=== PATIENT | male | born 1940 | race Caucasian/White ===

== ENCOUNTER → 2016-10-28 | Outpatient (CLI) | payer MEDICARE, OTHER ==
[~2016-10-28] MED LIST: ASPIRIN E.C. 8181 MG PO; B-121000 MCG PO; BETA GEST PO; CALCIUM CITRAT200 M2 PO; CIPRO 500MG TA500 MG PO; COENZYME Q-10100 M1 PO; FLONASE NASAL S16 GM NS; KLONOPIN 0.5MG0.5 MG PO; LUTEIN20 MG PO; MAGNESIUM250 M1 PO; MAREPA1200 MG PO; MASON NATURAL1000 M1 PO; METHYL B12 PO; MILK THISTLE150 MG PO; MULTIMINERALS PO; MULTIPLE VITAMI1 CAP PO; OSTEO-BI-FLEX 21 TAB PO; PROBIOTIC ACID1 EAC3 PO; PROBIOTIC FORMU1 CAP PO; SINGULAIR 110 MG/TAB PO; TYLENOL 500MG500 MG PO; VITAMIN B-6100 MG PO; VITAMIN C500 MG PO; VITAMIN D31000 IU PO; WELLBUTRIN SR150 M1 PO; ZINC50 M2 PO; [UNRECOGNIZED DRUG - OTHER]; [UNRECOGNIZED DRUG - OTHER] PO; [UNRECOGNIZED DRUG - OTHER] PO; [UNRECOGNIZED DRUG - OTHER] PO; [UNRECOGNIZED DRUG - OTHER] PO; [UNRECOGNIZED DRUG - OTHER] PO; [UNRECOGNIZED DRUG - OTHER] PO; [UNRECOGNIZED DRUG - OTHER] PO; [UNRECOGNIZED DRUG - OTHER] PO
== END ==
LOC: COL.RAD 07:42
DX: M47.26 Other spondylosis with radiculopathy, lumbar region (principal); M48.06 Spinal stenosis, lumbar region; M51.16 Intervertebral disc disorders with radiculopathy, lumbar region

== ENCOUNTER → 2016-12-30 | Outpatient (CLI) | payer MEDICARE, OTHER ==
[~2016-12-30] MED LIST changes: -TYLENOL 500MG500 MG PO
== END ==
LOC: COL.RAD 07:40
DX: N20.0 Calculus of kidney (principal); R31.0 Gross hematuria; Z98.890 Other specified postprocedural states
CPT/HCPCS: Q9967

== ENCOUNTER 2017-01-20 05:33 | Day surgery (SDC) | payer MEDICARE, OTHER ==
[~2017-01-20] VITALS: Ht 177.8 cm; Wt 71.4 kg
[2017-01-20] VITALS (11 sets, daily range): BP systolic 100–131; BP diastolic 55–84; PULSE 56–90; TEMP 97.3–98.3
[~2017-01-20 05:33] MED LIST changes: -B-121000 MCG PO; -CIPRO 500MG TA500 MG PO; -COENZYME Q-10100 M1 PO; -MASON NATURAL1000 M1 PO; -MILK THISTLE150 MG PO; -PROBIOTIC ACID1 EAC3 PO; -VITAMIN B-6100 MG PO; -[UNRECOGNIZED DRUG - OTHER] PO; -[UNRECOGNIZED DRUG - OTHER] PO
[2017-01-20] MEDS ORDERED: OSTEO-BI-FLEX 21 TAB PO (06:43)
[2017-01-20] MEDS ORDERED: PROBIOTIC ACID1 EAC3 PO (06:45)
[2017-01-20] MEDS ORDERED: MASON NATURAL1000 M1 PO (06:48)
[2017-01-20] MEDS ORDERED: [UNRECOGNIZED DRUG - OTHER] PO (06:50)
[2017-01-20] MEDS ORDERED: VITAMIN B-6100 MG PO (06:51)
[2017-01-20] MEDS ORDERED: B-121000 MCG PO (06:51)
[2017-01-20] MEDS ORDERED: COENZYME Q-10100 M1 PO (06:52)
[2017-01-20] MEDS ORDERED: [UNRECOGNIZED DRUG - OTHER] PO (06:56)
[2017-01-20] MEDS ORDERED: MILK THISTLE150 MG PO (07:00)
[2017-01-21 01:50] VITALS: BP 94/52; PULSE 63; TEMP 99.5
[2017-01-21 05:42] VITALS: BP 128/75; PULSE 56; TEMP 98.8
[2017-01-21 09:38] VITALS: BP 128/88; PULSE 67; TEMP 97.6
[2017-01-21 13:54] VITALS: BP 114/70; PULSE 91; TEMP 98.4
== END 2017-01-21 15:30 | disposition home or self-care (01) ==
LOC: SDCO 05:33 → SURG 09:35 → SDCO 01-21 15:30
DX: C67.6 Malignant neoplasm of ureteric orifice (principal); N32.0 Bladder-neck obstruction; C61 Malignant neoplasm of prostate; R31.9 Hematuria, unspecified; M46.90 Unspecified inflammatory spondylopathy, site unspecified; G47.33 Obstructive sleep apnea (adult) (pediatric); I49.9 Cardiac arrhythmia, unspecified; Z85.46 Personal history of malignant neoplasm of prostate; K21.9 Gastro-esophageal reflux disease without esophagitis; G25.81 Restless legs syndrome; K27.9 Peptic ulcer, site unspecified, unspecified as acute or chronic, without hemorrhage or perforation; M77.9 Enthesopathy, unspecified
CPT/HCPCS: OP; A9284; C1769; C2617; J0360; J0690; J1885; J2270; J2405; J2704; J3010; J7120; Q9967

== ENCOUNTER 2017-01-24 20:42 | Emergency (ER) | payer MEDICARE, OTHER, BC ==
[~2017-01-24] VITALS: Ht 177.8 cm; Wt 68.2 kg
[~2017-01-24 20:42] MED LIST changes: +B-121000 MCG PO; +COENZYME Q-10100 M1 PO; +MASON NATURAL1000 M1 PO; +MILK THISTLE150 MG PO; +PROBIOTIC ACID1 EAC3 PO; +VITAMIN B-6100 MG PO; +[UNRECOGNIZED DRUG - OTHER] PO; +[UNRECOGNIZED DRUG - OTHER] PO
[2017-01-24 20:52] VITALS: TEMP 97.9
[2017-01-24 21:52] LABS: BASO % 0.5 % (0.0-2.0); EOS # 0.2 (0.0-0.7); GRAN # 3.6 (1.4-6.5); GRAN % 62.5 % (42.2-75.2); HEMATOCRIT 44.3 % (42.0-52.0); HEMOGLOBIN 15.7 g/dl (13.5-18.0); LYMPH # 1.3 (1.2-3.4); LYMPH % 22.5 % (20.0-51.0); MEAN CELL VOLUME 93 fl (80.0-100.0); MEAN CORPUSCULAR HEMOGLOBIN 33 pg (27.0-31.0); MEAN CORPUSCULAR HGB CONC 35 g/dl (33.0-37.0); MONO # 0.6 (0.1-0.6); MONO % 11.2 % (1.7-9.3); PLATELET COUNT 151 K/mm3 (130-400); RED BLOOD COUNT 4.77 M/mm3 (4.20-5.60); REDCELL DISTRIBUTION WIDTH-CV 11.6 % (11.5-14.5); WHITE BLOOD COUNT 5.7 K/mm3 (4.8-10.8)
[2017-01-24 22:02] LABS: ADJUSTED CALCIUM 9.2 mg/dL (8.4-10.2); ALBUMIN 3.9 gm/dL (3.5-5.0); BILIRUBIN,TOTAL 0.6 mg/dL (0.0-1.0); CALCIUM 9.1 mg/dL (8.4-10.2); CREATININE, serum 0.94 mg/dL (0.66-1.25); TOTAL PROTEIN 6.8 gm/dL (6.4-8.2)
[2017-01-24 22:07] LABS: PH 8 (5-8); SQUAMOUS EPITHELIAL None Seen /hpf; URINE APPEARANCE Clear; URINE BACTERIA Rare /hpf; URINE BILIRUBIN Negative (NEGATIVE); URINE BLOOD 3+ (NEGATIVE); URINE COLOR Yellow; URINE GLUCOSE Negative (NEGATIVE); URINE KETONE Negative (NEGATIVE); URINE RBC >50 /hpf; URINE UROBILINOGEN Negative (NEGATIVE)
[2017-01-24 22:44] VITALS: BP 134/87; PULSE 68
[2017-01-24] MEDS ORDERED: CIPRO 500MG TA500 MG PO (22:53)
== END 2017-01-24 23:08 | disposition home or self-care (01) ==
LOC: COL.ER 20:42
PROVIDERS: Emergency Medicine
DX: R31.9 Hematuria, unspecified (principal); R33.9 Retention of urine, unspecified; Z85.46 Personal history of malignant neoplasm of prostate; Z90.49 Acquired absence of other specified parts of digestive tract; Z90.79 Acquired absence of other genital organ(s)

== ENCOUNTER → 2017-05-22 | Outpatient (CLI) | payer MEDICARE, OTHER ==
[~2017-05-22] MED LIST changes: +CIPRO 500MG TA500 MG PO; +TYLENOL 500MG500 MG PO
== END ==
LOC: COL.RAD 07:22
DX: N32.89 Other specified disorders of bladder (principal); N20.0 Calculus of kidney

== ENCOUNTER → 2018-04-27 | Outpatient (CLI) | payer MEDICARE, OTHER ==
[~2018-04-27] MED LIST changes: -FLONASE NASAL S16 GM NS; +FLONASEALLERGY NS; +LUTEIN20 M1 PO; -LUTEIN20 MG PO; -MAGNESIUM250 M1 PO; +MAGNESIUM500 MG PO; +MASON NATURAL2000 IU PO; -MILK THISTLE150 MG PO; +MILK THISTLE500 M2 PO; -VITAMIN B-6100 MG PO; +VITAMIN B650 MG PO; -VITAMIN D31000 IU PO; +VITAMINE200 PO; +WELLBUTRIN SR100 M1 PO; -WELLBUTRIN SR150 M1 PO; -[UNRECOGNIZED DRUG - OTHER] PO
== END ==
LOC: COL.RAD 09:17
DX: C61 Malignant neoplasm of prostate (principal); C67.4 Malignant neoplasm of posterior wall of bladder

== ENCOUNTER 2019-11-02 06:49 | Emergency (ER) | payer MEDICARE, OTHER ==
[~2019-11-02] VITALS: Ht 175.3 cm; Wt 72.7 kg
[2019-11-02 06:50] VITALS: TEMP 97.6
[2019-11-02 07:54] LABS: BASO % 0.4 % (0.0-2.0); EOS # 0.1 (0.0-0.7); EOS % 1.2 % (0-4.0); GRAN # 4.1 (1.4-6.5); GRAN % 81.9 % (42.2-75.2); HEMOGLOBIN 16.3 g/dl (13.5-18.0); LYMPH # 0.6 (1.2-3.4); LYMPH % 10.9 % (20.0-51.0); MEAN CELL VOLUME 94 fl (80.0-100.0); MEAN CORPUSCULAR HEMOGLOBIN 33 pg (27.0-31.0); MEAN CORPUSCULAR HGB CONC 35 g/dl (33.0-37.0); MEAN PLATELET VOLUME 9.6 fl (7.4-10.4); MONO # 0.3 (0.1-0.6); MONO % 5.4 % (1.7-9.3); PLATELET COUNT 148 K/mm3 (130-400); REDCELL DISTRIBUTION WIDTH-CV 11.9 % (11.5-14.5)
[2019-11-02 08:00] LABS: INR 1.1 (0.8-3.0); PROTHROMBIN TIME 11.8 SECONDS (9.7-12.8)
[2019-11-02] MEDS ORDERED: MASON NATURAL1000 M1 PO (08:10)
[2019-11-02 08:11] LABS: ALANINE AMINOTRANSFERASE 20 U/L (4-49); ALBUMIN 4.2 gm/dL (3.5-5.0); ALKALINE PHOSPHATASE 69 U/L (50-136); ANION GAP 4 mmol/L (7-16); AST,SGOT 28 U/L (15-37); BILIRUBIN,TOTAL 0.8 mg/dL (0.0-1.0); BLOOD UREA NITROGEN 23 mg/dL (9-20); CALCIUM 9.2 mg/dL (8.4-10.2); CARBON DIOXIDE 30 mmol/L (22-30); CHLORIDE 103 mmol/L (98-107); CREATININE, serum 0.97 (0.66-1.25); GLUCOSE 123 mg/dL (74-106); LIPASE 448 U/L (23-300); POTASSIUM 4.2 mmol/L (3.4-5.0); SODIUM 138 mmol/L (137-145); TOTAL PROTEIN 7.3 gm/dL (6.4-8.2)
[2019-11-02] MEDS ORDERED: TURMERIC500 MG PO (08:11)
[2019-11-02] MEDS ORDERED: NATURAL FLAX1000 MG PO (08:11)
[2019-11-02] MEDS ORDERED: ALL DAY ALLERGY (08:12)
[2019-11-02] MEDS ORDERED: DIGESTIVE ENZYME (08:13)
[2019-11-02] MEDS ORDERED: BETA GEST (08:14)
[2019-11-02] MEDS ORDERED: B COMPLEX & B121 TAB (08:15)
[2019-11-02 08:17] LABS: C-REACTIVE PROTEIN < 0.5 mg/dL (0.0-0.9)
[2019-11-02 08:25] LABS: COLLECTION METHOD CLEAN CATCH
[2019-11-02 08:27] LABS: TROPONIN-I < 0.012 ng/mL (0.000-0.035)
[2019-11-02 08:31] LABS: MUCOUS Present /lpf; PH 9 (5-8); SQUAMOUS EPITHELIAL 0-2 /hpf; URINE APPEARANCE Clear; URINE BACTERIA None Seen /hpf; URINE BILIRUBIN Negative (NEGATIVE); URINE BLOOD Negative (NEGATIVE); URINE COLOR Yellow; URINE GLUCOSE Negative (NEGATIVE); URINE KETONE Negative (NEGATIVE); URINE LEUKOCYTE ESTERASE Negative (NEGATIVE); URINE NITRATE Negative (NEGATIVE); URINE PROTEIN(semi-quant) Negative (NEGATIVE); URINE UROBILINOGEN Negative (NEGATIVE)
[2019-11-02] MEDS ORDERED: PHENERGAN 25 TA25 MG PO (10:53)
[2019-11-02] MEDS ORDERED: AMOXICILLIN 8751 TAB PO (11:11)
[2019-11-02 11:50] VITALS: BP 146/95; PULSE 72
== END 2019-11-02 11:55 | disposition home or self-care (01) ==
LOC: COL.ER 06:49
PROVIDERS: Emergency Medicine
DX: R53.81 Other malaise (principal); R31.9 Hematuria, unspecified; H70.90 Unspecified mastoiditis, unspecified ear; R74.8 Abnormal levels of other serum enzymes; Z90.49 Acquired absence of other specified parts of digestive tract; Z85.3 Personal history of malignant neoplasm of breast; Z79.82 Long term (current) use of aspirin
CPT/HCPCS: C9113; J2060; J7030; Q9967

== ENCOUNTER 2020-04-18 10:28 | Emergency (ER) | payer MEDICARE, OTHER ==
[~2020-04-18] VITALS: Ht 175.3 cm; Wt 70.5 kg
[~2020-04-18 10:28] MED LIST changes: +ALL DAY ALLERGY; +AMOXICILLIN 8751 TAB PO; +B COMPLEX & B121 TAB; +BETA GEST; +DIGESTIVE ENZYME; +NATURAL FLAX1000 MG PO; +PHENERGAN 25 TA25 MG PO; +TURMERIC500 MG PO
[2020-04-18 10:36] VITALS: TEMP 97.7
[2020-04-18 11:01] LABS: BASO % 0.3 % (0.0-2.0); EOS # 0.1 (0.0-0.7); EOS % 1.2 % (0-4.0); GRAN # 4.9 (1.4-6.5); GRAN % 81.1 % (42.2-75.2); HEMATOCRIT 47.4 % (42.0-52.0); HEMOGLOBIN 16.6 g/dl (13.5-18.0); LYMPH # 0.7 (1.2-3.4); LYMPH % 11.5 % (20.0-51.0); MEAN CELL VOLUME 94 fl (80.0-100.0); MEAN CORPUSCULAR HEMOGLOBIN 33 pg (27.0-31.0); MEAN CORPUSCULAR HGB CONC 35 g/dl (33.0-37.0); MEAN PLATELET VOLUME 9.6 fl (7.4-10.4); MONO # 0.3 (0.1-0.6); MONO % 5.6 % (1.7-9.3); PLATELET COUNT 148 K/mm3 (130-400); RED BLOOD COUNT 5.07 M/mm3 (4.20-5.60); REDCELL DISTRIBUTION WIDTH-CV 11.9 % (11.5-14.5)
[2020-04-18 11:12] LABS: ALANINE AMINOTRANSFERASE 21 U/L (4-49); ALBUMIN 4.3 gm/dL (3.5-5.0); ALKALINE PHOSPHATASE 69 U/L (50-136); ANION GAP 9 mmol/L (7-16); AST,SGOT 33 U/L (15-37); BILIRUBIN,TOTAL 0.9 mg/dL (0.0-1.0); BLOOD UREA NITROGEN 18 mg/dL (9-20); CALCIUM 9.3 mg/dL (8.4-10.2); CARBON DIOXIDE 29 mmol/L (22-30); CHLORIDE 100 mmol/L (98-107); CREATININE, serum 0.89 (0.66-1.25); GLUCOSE 143 mg/dL (74-106); POTASSIUM 4.4 mmol/L (3.4-5.0); SODIUM 138 mmol/L (137-145); TOTAL PROTEIN 7.2 gm/dL (6.4-8.2)
[2020-04-18 11:24] LABS: TROPONIN-I < 0.012 ng/mL (0.000-0.035)
[2020-04-18 13:35] VITALS: BP 134/89; PULSE 68
[2020-04-18] MEDS ORDERED: VALIUM 2MG T2 MG/TAB PO (13:51)
[2020-04-18] MEDS ORDERED: PHENERGAN 25 TA25 MG PO (13:51)
== END 2020-04-18 14:21 | disposition home or self-care (01) ==
LOC: COL.ER 10:28
PROVIDERS: Nurse Practitioner Primary Care
DX: R42 Dizziness and giddiness (principal); I10 Essential (primary) hypertension; Z85.46 Personal history of malignant neoplasm of prostate; Z88.1 Allergy status to other antibiotic agents; Z88.8 Allergy status to other drugs, medicaments and biological substances; Z79.82 Long term (current) use of aspirin
CPT/HCPCS: J2550; J3360; J7030

== ENCOUNTER → 2021-03-14 | Outpatient (CLI) | payer MEDICARE, OTHER ==
[~2021-03-14] MED LIST changes: +VALIUM 2MG T2 MG/TAB PO
== END ==
LOC: COL.RAD 14:05
DX: C67.4 Malignant neoplasm of posterior wall of bladder (principal)

== ENCOUNTER → 2021-09-12 | Outpatient (CLI) | payer MEDICARE, OTHER | LOC: COL.RAD 09:58 | DX: C67.4 Malignant neoplasm of posterior wall of bladder (principal) ==

== ENCOUNTER 2023-11-19 11:58 | Inpatient (IN) | payer MEDICARE, OTHER ==
[~2023-11-19] VITALS: Ht 177.8 cm; Wt 78.0 kg
[2023-11-19] VITALS (10 sets, daily range): BP systolic 109–141; BP diastolic 68–108; PULSE 68–96; TEMP 97.7–98
[~2023-11-19 11:58] MED LIST changes: -B COMPLEX & B121 TAB; +B COMPLEX & B121 TAB PO; -BETA GEST; +Lidocaine PF 2% (20 MG/ML) 5 ML VIAL ONE; +NS 1,000 ML IV SCH; -WELLBUTRIN SR100 M1 PO; +WELLBUTRIN SR150 M1 PO; +ePHEDrine 50 MG/ML VIAL ONE
[2023-11-19] MEDS ORDERED: NS Flush 10 ML SYRINGE PRN ICA (12:30)
[2023-11-19 13:08] LABS: HEMATOCRIT 48.4 % (42.0-52.0); HEMOGLOBIN 17.3 g/dl (13.5-18.0); MEAN CELL VOLUME 94 fl (80.0-100.0); MEAN CORPUSCULAR HEMOGLOBIN 34 pg (27-31); MEAN CORPUSCULAR HGB CONC 36 g/dl (33.0-37.0); MEAN PLATELET VOLUME 9.7 fl (7.4-10.4); PLATELET COUNT 145 K/mm3 (130-400); RED BLOOD COUNT 5.14 M/mm3 (4.20-5.60); REDCELL DISTRIBUTION WIDTH-CV 12.6 % (11.5-14.5)
[2023-11-19 13:12] LABS: INR 1.2 (0.8-3.0); PROTHROMBIN TIME 13.3 SECONDS (9.7-12.8)
[2023-11-19 13:15] LABS: PARTIAL THROMBOPLASTIN TIME 30.6 SECONDS (26.0-37.0)
[2023-11-19 13:26] LABS: CALCIUM 9.6 mg/dL (8.4-10.2); CREATININE, serum 1.03 mg/dL (0.72-1.25); MAGNESIUM 2.1 mg/dL (1.6-2.6); POTASSIUM 4.7 mEq/L (3.5-4.5)
[2023-11-19] MEDS ORDERED: ELIQUIS 5MG PO (13:39)
[2023-11-19] MEDS ORDERED: TOPROL XL 50MG50 MG PO (13:40)
[2023-11-19] MEDS ORDERED: SYNTHROID0.05 MG/TA PO (13:41)
[2023-11-19] MEDS ORDERED: ZOLOFT 50MG50 MG PO (13:41)
[2023-11-19] MEDS ORDERED: KLONOPIN 0.5MG0.5 MG PO (13:42)
[2023-11-19] MEDS ORDERED: FLOVENT DI100 MCG/Ac IH (13:43)
[2023-11-19 13:47] LABS: THYROID STIMULATING HORMONE 2.861 uIU/mL (0.350-4.940)
[2023-11-19] MEDS ORDERED: [UNRECOGNIZED DRUG - OTHER] PO (13:52)
[2023-11-19] MEDS ORDERED: CENTRUM1 TA1 PO (13:53)
[2023-11-19] MEDS ORDERED: [UNRECOGNIZED DRUG - OTHER] PO (13:54)
[2023-11-19] MEDS ORDERED: [UNRECOGNIZED DRUG - OTHER] PO (13:55)
[2023-11-19] MEDS ORDERED: L-CARNITINE500 M1 PO (13:56)
--- NOTE | 2023-11-19 14:10 | NUR ---
REPORT FROM JULIO ARANGO, CARDIOVERSION SUCCESSFUL, HR 80'S, EKG DON. PT SITS UP IN BED, TALKS WITH DAUGHTER, REQUESTED SOMETHING TO DRINK, TAKES JUICE AND WATER, CALL LIGHT IN REACH
[2023-11-19] MEDS ORDERED: Temazepam 15 MG CAP PO PRN (14:15)
[2023-11-19] MEDS ORDERED: Docusate Sodium 100 MG CAP PO PRN (14:45)
[2023-11-19] MEDS ORDERED: Montelukast 10 MG TAB PO PRN (14:45)
[2023-11-19] MEDS ORDERED: Acetaminophen 325 MG TAB PO PRN ×2 (14:45→15:00)
--- NOTE | 2023-11-19 14:45 | NUR ---
SOTOLOL INITIAL DOSE 80MG GIVEN ORDERED, PT CON'T SAME, SITS UP IN BED AND TALKS TO DAUGHTER
--- NOTE | 2023-11-19 15:10 | NUR ---
PT TAKES SNACK OF YOGESH JADE, HAS NO C/O, INFORMATION GIVEN TO FAMILY ON NEW MED SOTOLOL
--- NOTE | 2023-11-19 15:45 | NUR ---
REPORT CALLED TO 3RD FLOOR NURSE ROOM 318, SOTOLOL GIVEN ORDERED, PT ON TELE, PT STATES DOES NOT NEED TO GO TO B/R AT THIS TIME. IV TO INT. NO OTHER CHANGES FROM INITIAL ASSESSMENT, PT TO ROOM 318 VIA W/C WITH FAMILY MEMBERS AND RN AT 155
--- NOTE | 2023-11-19 16:39 | NUR ---
Patient arrived to the medical unit, alert and oriented x 4, VSS. Denies any pain or discomfort at this time. Family at bedside. Assessment intake completed.
[2023-11-19] MEDS ORDERED: Magnesium Oxide 400 MG TAB PO SCH (17:00)
[2023-11-19] MEDS ORDERED: Cholecalciferol (Vit D3) 5000 Units Capsule PO SCH (18:00)
[2023-11-19] MEDS ORDERED: Fluticasone Diskus 100 MCG **** subs to Budesonide 0.5 MG Nebs IH SCH (19:00)
[2023-11-19] MEDS ORDERED: Budesonide Neb Susp 0.5 MG/2 ML AMP IH SCH (19:00)
--- NOTE | 2023-11-19 19:03 | NUR ---
[place] of DPOA placed on chart.
[2023-11-19] MEDS ORDERED: Lutein 20 MG CAP PO SCH (21:00)
[2023-11-19] MEDS ORDERED: clonazePAM 0.5 MG TAB PO SCH (21:00)
[2023-11-19] MEDS ORDERED: Apixaban 5 MG TABLET PO SCH (21:00)
[2023-11-19] MEDS ORDERED: Calcium Citrate/Vit D3 200 mg-250 Units TAB PO SCH (21:00)
[2023-11-19] MEDS ORDERED: buPROPion SR (12-HR) 150 MG TAB PO SCH (21:00)
[2023-11-19] MEDS ORDERED: [UNRECOGNIZED DRUG - OTHER] PO SCH (21:00)
[2023-11-19] MEDS ORDERED: NS Flush 10 ML SYRINGE BID ICA SCH (21:00)
[2023-11-19] MEDS ORDERED: VITAMIN E PO SCH (21:00)
--- NOTE | 2023-11-19 23:17 | NUR ---
patient lying in bed, alert and oriented x4. hard of hearing, bipap in place. denies chest pain and shortness of breath. IV in RAC is patent, site is [facility]. ambulating with steady gait. pt has no further needs, questions or concerns at this time. call light within reach. will continue to monitor.
[2023-11-20] VITALS (13 sets, daily range): BP systolic 96–125; BP diastolic 58–78; PULSE 51–67; TEMP 97.4–98.1
[2023-11-20 08:58] LABS: BASO % 0.4 % (0.0-2.0); EOS # 0.1 K/mm3 (0.0-0.7); GRAN # 3.6 K/mm3 (1.4-6.5); GRAN % 65.3 % (42.2-75.2); HEMATOCRIT 45.4 % (42.0-52.0); HEMOGLOBIN 15.6 g/dl (13.5-18.0); LYMPH # 1.1 K/mm3 (1.2-3.4); LYMPH % 20.4 % (20.0-51.0); MEAN CELL VOLUME 98 fl (80.0-100.0); MEAN CORPUSCULAR HEMOGLOBIN 34 pg (27-31); MEAN CORPUSCULAR HGB CONC 34 g/dl (33.0-37.0); MEAN PLATELET VOLUME 9.8 fl (7.4-10.4); MONO # 0.6 K/mm3 (0.1-0.6); MONO % 11.5 % (1.7-9.3); PLATELET COUNT 147 K/mm3 (130-400); RED BLOOD COUNT 4.63 M/mm3 (4.20-5.60)
[2023-11-20] MEDS ORDERED: Ascorbic Acid 500 MG TAB PO SCH (09:00)
[2023-11-20] MEDS ORDERED: Sertraline 50 MG TAB PO SCH (09:00)
[2023-11-20] MEDS ORDERED: Multivitamin TAB PO SCH (09:00)
--- NOTE | 2023-11-20 09:06 | NUR ---
PATIENT ALERT AND ORIENTED X4 BUT [place] WITH BILAT HUNTER. PATIENT DENIES ANY PAIN. PATIENT HERE FOR SOTALOL INITIATION, ON DAY 2 TODAY. PATIENT ON RA. CPAP HS. IV TO RIGHT AC INT AND FLUSHES WELL. PATIENT TOLERATING BREAKFAST. DENIES ANY NEEDS. CALL LIGHT IN REACH.
[2023-11-20 09:10] LABS: POTASSIUM 4.6 mEq/L (3.5-4.5)
--- NOTE | 2023-11-20 13:40 | NUR ---
D: Statistician Applied stopped by room on rounds. A: Pt was resting and content with family in the room. Great conversation and pt is well covered by his family and evangelical. Pt and family appreciated the visit. P: Statistician Applied informed pt that if they needed anything from the delivery nurse area to let his nurse know. Statistician Applied will follow up as needed.
--- NOTE | 2023-11-20 16:08 | NUR ---
District Leader met with patient to discuss discharge planning. Patient lives in [place] with his , Anisa who has dementia. Patient advised he is her primary caregiver and his two daughters, Tran (ph#[phone]) and Bonnie are staying with Anisa while he is hospitalized. Patient sees Dr. Calixto for primary care and gets his medications from [facility]. Patient uses a CPAP and no other DME. Patient is independent with ADLS and plans to return home at time of discharge. Patient has DPOA-HC on his chart designating his children. Discharge Plan: Home
--- NOTE | 2023-11-20 20:30 | NUR ---
Initial shift assessment done- denies any pain, denies SOB, denies palpitations. VSS. Had family here- have left now per visiting hours. Pleasant, oriented x4, TEJON, Tele on- SR,, Up on own- steady on feet, hoping to go home tomorrow. Did have a small snack tonight.
[2023-11-21 01:00] VITALS: BP_SYST 121
[2023-11-21 02:58] VITALS: BP 116/73; PULSE 57; TEMP 98.1
[2023-11-21 05:00] VITALS: BP_SYST 116
--- NOTE | 2023-11-21 05:46 | NUR ---
Quiet night- no requests, tele on SR aundrea at 48-52/min- sleeping.
[2023-11-21 07:13] LABS: BASO % 0.4 % (0.0-2.0); EOS # 0.1 K/mm3 (0.0-0.7); EOS % 2.5 % (0.0-4.0); GRAN # 3.4 K/mm3 (1.4-6.5); GRAN % 65.2 % (42.2-75.2); HEMATOCRIT 43.9 % (42.0-52.0); HEMOGLOBIN 15.1 g/dl (13.5-18.0); LYMPH # 1.1 K/mm3 (1.2-3.4); LYMPH % 21.7 % (20.0-51.0); MEAN CELL VOLUME 98 fl (80.0-100.0); MEAN CORPUSCULAR HEMOGLOBIN 34 pg (27-31); MEAN CORPUSCULAR HGB CONC 34 g/dl (33.0-37.0); MEAN PLATELET VOLUME 9.9 fl (7.4-10.4); MONO # 0.5 K/mm3 (0.1-0.6); PLATELET COUNT 132 K/mm3 (130-400); RED BLOOD COUNT 4.46 M/mm3 (4.20-5.60); REDCELL DISTRIBUTION WIDTH-CV 12.9 % (11.5-14.5)
[2023-11-21 07:22] VITALS: BP 108/72; PULSE 55; TEMP 97.5
[2023-11-21 07:29] LABS: CALCIUM 8.8 mg/dL (8.4-10.2); CREATININE, serum 1.01 mg/dL (0.72-1.25); POTASSIUM 4.5 mEq/L (3.5-4.5)
--- NOTE | 2023-11-21 08:45 | NUR ---
Called from Critical Care stating pt had some irregular beats. Checking on patient he just finished his breakfast, A&Ox4. Denies any chest pain, palpitations, dizzyness or lightheadedness. Assessment completed, medications giving. Pt would like to go home today. No further needs at this time. Call light within reach. Daughter at bedside.
[2023-11-21 09:00] VITALS: BP_SYST 108
[2023-11-21] MEDS ORDERED: BETAPACE 80MG80 MG PO (11:06)
[2023-11-21 11:25] VITALS: BP 109/72; PULSE 55; TEMP 97.3
--- NOTE | 2023-11-21 11:55 | NUR ---
Patient was provided with discharge information, all questions answered. Tele and IV access were discontinued.
== END 2023-11-21 11:57 | disposition home or self-care (01) | DRG 310 ==
LOC: COL.CAR 11:58 → MEDICAL 16:15 → COL.CAR 16:16 → MEDICAL 16:17
PROVIDERS: ADMIT Internal Medicine Cardiovascular Disease
PROC: 5A2204Z Restoration of Cardiac Rhythm, Single (ICD-10-PCS; principal; 2023-11-19)
DX: I48.92 Unspecified atrial flutter (principal); G62.9 Polyneuropathy, unspecified; G25.81 Restless legs syndrome; I10 Essential (primary) hypertension; G47.33 Obstructive sleep apnea (adult) (pediatric); F32.A Depression, unspecified; E03.9 Hypothyroidism, unspecified; I48.91 Unspecified atrial fibrillation; F41.9 Anxiety disorder, unspecified; M19.90 Unspecified osteoarthritis, unspecified site; Z99.89 Dependence on other enabling machines and devices; Z85.46 Personal history of malignant neoplasm of prostate; Z85.51 Personal history of malignant neoplasm of bladder; Z88.8 Allergy status to other drugs, medicaments and biological substances; Z87.442 Personal history of urinary calculi; Z23 Encounter for immunization
CPT/HCPCS: J2704; J7030

== ENCOUNTER 2023-12-19 09:19 | Day surgery (SDC) | payer MEDICARE ==
[2023-12-19] VITALS (8 sets, daily range): BP systolic 117–154; BP diastolic 76–101; PULSE 38–48; TEMP 97.7
[~2023-12-19] VITALS: Ht 177.8 cm; Wt 77.2 kg
[~2023-12-19 09:19] MED LIST changes: +BENADRYL25 M2 PO; +BETAPACE 80MG80 MG PO; +CALCIUM 600MG+D1 TAB PO; +CENTRUM1 TA1 PO; +CEPHALEXIN500 M1 PO; +CITICOLINE PO; +ELIQUIS 5MG PO; +FLAXSEED OIL1000 MG PO; +FLOVENT DI100 MCG/Ac IH; +L-CARNITINE500 M1 PO; +LOPRESSOR 550 MG/TAB PO; -Lidocaine PF 2% (20 MG/ML) 5 ML VIAL ONE; -MASON NATURAL2000 IU PO; -NS 1,000 ML IV SCH; +PROBIOTIC BLEN1 EACH PO; +SYNTHROID0.05 MG/TA PO; +THE MEDICINE S200 M2 PO; +TOPROL XL 50MG50 MG PO; +VITAMIND3 5000 PO; +ZOLOFT 50MG50 MG PO; +[UNRECOGNIZED DRUG - OTHER] PO; +[UNRECOGNIZED DRUG - OTHER] PO; -ePHEDrine 50 MG/ML VIAL ONE
--- NOTE | 2023-12-19 10:07 | NUR ---
Dr Hernandez in to speak with pt and son in law Miguelangel. They express understanding of plan of care. Miguelangel states he will be available to drive pt home following recovery from procedure.
[2023-12-19] MEDS ORDERED: NS 100 ML IV.SOLN. IR SCH (10:41)
[2023-12-19] MEDS ORDERED: fentaNYL 50 MCG/ML 2 ML VIAL IV SCH (11:00)
[2023-12-19] MEDS ORDERED: Midazolam 2 MG/2 ML VIAL IV SCH (11:00)
--- NOTE | 2023-12-19 11:23 | NUR ---
Please see merge document for record of interventions, vitals and medications administered during loop revision with Dr. Hernandez. Pt tolerated procedure well, and he is now transferred back to express unit rm 12 via stretcher. Pt is drowsy, oriented, pwd, reg and unlabored respirations. easily arousable. dressing to loop site clean, dry and intact. pt on monitor for post procedure vitals. bs report and handoff of care to Derrick ARANGO
--- NOTE | 2023-12-19 11:50 | NUR ---
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 Pt denied complaints on return, just stated he felt tired. Pt now fuly awake, states he is feeling more alert. BP remains stable, and pt remains bradycardic. Will continue to montior. Water and granola bar provided to pt. Call light in reach. He denies further needs at this time.
--- NOTE | 2023-12-19 11:56 | NUR ---
Dr Hernandez notified by this nurse of continued bradycardia, he states no changes at this time.
--- NOTE | 2023-12-19 12:55 | NUR ---
DC instructions reviewed with pt and son-in-law Miguelangel. Both express understanding. Pt is fully awake. Free of complaints. He is assisted to sit up on edge of bed during review of instructions. He then ambulates into hallway and around nurse's station. Gait is steady. No complaints of dizziness or other concerns with activity. He states he feels ready to go home. Pt and Miguelangel are aware of pt's bradycardia. Pt will continue to monitor HR and TN at home, and expresses understanding of reasons to notify cardiology for symptomatic bradycardia or further concerns with loop site. IV DC'd, site wrapped with coban. He is assisted out to Miguelangel's car by wheelchair with belongings.
== END 2023-12-19 12:55 | disposition home or self-care (01) ==
LOC: COL.CAR 09:19
DX: I48.91 Unspecified atrial fibrillation (principal); G47.33 Obstructive sleep apnea (adult) (pediatric)
CPT/HCPCS: J0690; J2250; J3370; J7050